=== PATIENT | male | born 1980 | race African-American/Black ===

== ENCOUNTER 2022-03-20 07:10 | Emergency (ER) | payer OTHER ==
[~2022-03-20] VITALS: Ht 193 cm; Wt 136.1 kg
[2022-03-20 07:17] VITALS: BP_SYST 191
--- NOTE | 2022-03-20 07:25 | NUR ---
Placed in room 6 . Placed on quality assurance monitor, blood pressure machine and pulse oximeter. To gown for exam. Side rails up.
--- NOTE | 2022-03-20 07:30 | NUR ---
PT CAME IN FROM HOME C/O COUGH, CONGESTION, RUNNY NOSE X 3 DAYS. PT IS AMBULATORY, AAOX4, VSS
--- NOTE | 2022-03-20 07:35 | NUR ---
ER DR. MCCLOUD AT THE BEDSIDE EXAMINING PT
--- NOTE | 2022-03-20 07:45 | NUR ---
COVID SWAB DONE AND SENT TO LAB
--- NOTE | 2022-03-20 07:50 | NUR ---
PORTABLE XRAY AT THE BEDSIDE
[2022-03-20] MEDS ORDERED: cloNIDine HCL 0.1 MG TABLET PO ONE (08:00)
[2022-03-20] MEDS ORDERED: D-ME118S48 PO (08:24)
[2022-03-20] MEDS ORDERED: TRAM50TA PO (08:24)
[2022-03-20 08:37] VITALS: BP_SYST 191
--- NOTE | 2022-03-20 08:38 | NUR ---
Patient given written and verbal discharge instructions and verbalizes understanding. ER MD discussed with patient the results and treatment provided. Patient in stable condition. ID arm band removed. Rx of BROMFED DM AND TRAMADOL given. Patient educated on pain management and to follow up with PMD. Pain Scale 0/10. Opportunity for questions provided and answered. Medication side effect fact sheet provided.
== END 2022-03-20 08:37 | disposition home or self-care (01) ==
LOC: SED 07:10
DX: J06.9 Acute upper respiratory infection, unspecified (principal); Z79.899 Other long term (current) drug therapy; Z20.822 Contact with and (suspected) exposure to COVID-19
CPT/HCPCS: 36415; 71045; 99284